=== PATIENT | female | born 1990 | race Caucasian/White ===

== ENCOUNTER 2017-01-20 12:22 | Emergency (ER) | payer MEDICAID ==
[2016-10-05 12:21] VITALS: BMI 29.9
[~2017-01-20 12:22] MED LIST: AUGMENTIN 875-11 TAB PO; COMPAZINE10 MG PO; DOXYCYCLINE HY100 M2 PO; FLAGYL500 MG PO; PHENERGAN25 M1 PO; PROMETHEGA25 MG/SUPP RC; REGLAN10 MG PO; ULTRAM50 MG PO; ZOFRAN4 MG PO
[2017-01-20 13:01] LABS: BASOPHILS 0.1 % (0.0-2.0); EOSINOPHILS 0.2 % (0-7); HEMATOCRIT 33.3 % (36.0-48.0); HEMOGLOBIN 11.9 g/dL (12-16); IMMATURE GRANULOCYTES 0.7 % (0-5); LYMPHOCYTES 12.7 % (15-50); MCH 32.4 pg (26.0-34.0); MCHC 35.7 g/dL (31.0-37.0); MCV 90.7 fL (80.0-100.0); MEAN PLATELET VOLUME 12.3 fL (7.4-10.4); MONOCYTES 3.6 % (2-11); NEUTROPHILS 82.7 % (40-80); PLATELET COUNT 107 10x3/uL (130-400); RBC 3.67 10x6/uL (4.00-5.40); RDW 12.6 % (11.5-14.5); WBC 12.2 10x3/uL (4.8-10.8)
[2017-01-20 13:16] LABS: ALKALINE PHOSPHATASE 60 U/L (46-116); ALT (SGPT) 35 U/L (10-68); AMYLASE - SERUM 74 U/L (25-115); BILIRUBIN - TOTAL 0.42 mg/dL (0.2-1.3); CALC OSMOLALITY 272 mosm/kg (275-300); CALCIUM 8.4 mg/dL (8.5-10.1); CARBON DIOXIDE 22.1 mmol/L (21.0-32.0); CHLORIDE - SERUM 104 mmol/L (98-107); CREATININE - SERUM 0.4 mg/dL (0.6-1.3); GLUCOSE 105 mg/dL (74-106); LIPASE 98 U/L (73-393); PROTEIN - SERUM 6.5 g/dL (6.4-8.2); SODIUM 138 mmol/L (136-145); UREA NITROGEN 4 mg/dL (7-18); eGFR NON AFRICAN AMERICAN > 90 mL/min (90-120)
[2017-01-20 13:17] LABS: POTASSIUM - SERUM 2.9 mmol/L (3.5-5.1)
== END 2017-01-20 13:45 | disposition home or self-care (01) ==
LOC: D.ER 12:22
PROVIDERS: Emergency Medicine
DX: R11.10 Vomiting, unspecified (principal); R10.9 Unspecified abdominal pain; E87.6 Hypokalemia; F17.200 Nicotine dependence, unspecified, uncomplicated

== ENCOUNTER 2017-02-13 18:06 | Emergency (ER) | payer MEDICAID ==
[2016-10-05 12:21] VITALS: BMI 29.9
[2017-02-13 18:58] LABS: BASOPHILS 0 % (0.0-2.0); EOSINOPHILS 0 % (0-7); HEMATOCRIT 33.4 % (36.0-48.0); HEMOGLOBIN 12.1 g/dL (12-16); IMMATURE GRANULOCYTES 0.9 % (0-5); LYMPHOCYTES 11.6 % (15-50); MCH 32.6 pg (26.0-34.0); MCHC 36.2 g/dL (31.0-37.0); MEAN PLATELET VOLUME 12.3 fL (7.4-10.4); MONOCYTES 4.4 % (2-11); NEUTROPHILS 83.1 % (40-80); RBC 3.71 10x6/uL (4.00-5.40); RDW 12.4 % (11.5-14.5); WBC 18.6 10x3/uL (4.8-10.8)
[2017-02-13 19:03] LABS: PLATELET COUNT 162 10x3/uL (130-400)
[2017-02-13 19:26] LABS: APPEARANCE CLOUDY (CLEAR); BILIRUBIN NEGATIVE (NEGATIVE); COLOR DK YELLOW (YELLOW); GLUCOSE NEGATIVE (NEGATIVE); KETONE LARGE mg/dL (NEGATIVE); LEUKOCYTE ESTERASE 1+ (NEGATIVE); NITRITE NEGATIVE (NEGATIVE); PROTEIN 1+ mg/dL (NEGATIVE); UROBILINOGEN NORMAL (NORMAL)
[2017-02-13 19:27] LABS: BACTERIA MANY /hpf (NONE SEEN); RED CELLS - URINE 0-5 /hpf (0-5)
[2017-02-13 19:34] LABS: UDS - AMPHET NEGATIVE QUAL (NEGATIVE); UDS - BARB NEGATIVE QUAL (NEGATIVE); UDS - BENZO NEGATIVE QUAL (NEGATIVE); UDS - COCAINE NEGATIVE QUAL (NEGATIVE); UDS - METH NEGATIVE QUAL (NEGATIVE); UDS - OPIATE NEGATIVE QUAL (NEGATIVE); UDS - PCP NEGATIVE QUAL (NEGATIVE); UDS - THC POSITIVE QUAL (NEGATIVE)
[2017-02-13 19:38] LABS: ALBUMIN 3.1 g/dL (3.4-5.0); ALKALINE PHOSPHATASE 83 U/L (46-116); ALT (SGPT) 23 U/L (10-68); AMYLASE - SERUM 43 U/L (25-115); BILIRUBIN - TOTAL 0.66 mg/dL (0.2-1.3); CALC OSMOLALITY 266 mosm/kg (275-300); CALCIUM 8.7 mg/dL (8.5-10.1); CARBON DIOXIDE 19.4 mmol/L (21.0-32.0); CHLORIDE - SERUM 100 mmol/L (98-107); CREATININE - SERUM 0.4 mg/dL (0.6-1.3); GLUCOSE 97 mg/dL (74-106); LIPASE 84 U/L (73-393); POTASSIUM - SERUM 3.3 mmol/L (3.5-5.1); PROTEIN - SERUM 6.9 g/dL (6.4-8.2); SODIUM 135 mmol/L (136-145); UREA NITROGEN 4 mg/dL (7-18); eGFR NON AFRICAN AMERICAN > 90 mL/min (90-120)
== END 2017-02-13 19:10 | disposition left against medical advice (07) ==
LOC: D.ER 18:06
PROVIDERS: Emergency Medicine
DX: R11.2 Nausea with vomiting, unspecified (principal)

== ENCOUNTER 2017-03-26 20:08 | Outpatient (CLI) | payer MEDICAID ==
[2016-10-05 12:21] VITALS: BMI 29.9
== END 2017-03-26 21:56 | disposition other institution (70) ==
LOC: D.LDO 20:08
DX: O09.893 Supervision of other high risk pregnancies, third trimester (principal); Z3A.36 36 weeks gestation of pregnancy; R10.9 Unspecified abdominal pain

== ENCOUNTER 2017-04-11 12:04 | Emergency (ER) | payer MEDICAID ==
[2016-10-05 12:21] VITALS: BMI 29.9
== END 2017-04-11 13:23 | disposition home or self-care (01) ==
LOC: D.ER 12:04
DX: S31.115D Laceration without foreign body of abdominal wall, periumbilic region without penetration into peritoneal cavity, subsequent encounter (principal); X58.XXXD Exposure to other specified factors, subsequent encounter; Y92.89 Other specified places as the place of occurrence of the external cause

== ENCOUNTER 2017-04-27 20:28 | Emergency (ER) | payer MEDICAID ==
[2016-10-05 12:21] VITALS: BMI 29.9
[2017-04-27 20:54] LABS: APPEARANCE CLOUDY (CLEAR); BILIRUBIN NEGATIVE (NEGATIVE); COLOR YELLOW (YELLOW); GLUCOSE NEGATIVE (NEGATIVE); KETONE NEGATIVE (NEGATIVE); LEUKOCYTE ESTERASE TRACE (NEGATIVE); NITRITE NEGATIVE (NEGATIVE); PROTEIN 1+ mg/dL (NEGATIVE); UROBILINOGEN NORMAL (NORMAL)
[2017-04-27 20:55] LABS: BACTERIA MODERATE /hpf (NONE SEEN); MUCUS <1+ /lpf (NONE SEEN); RED CELLS - URINE 0-5 /hpf (0-5)
== END 2017-04-27 22:37 | disposition left against medical advice (07) ==
LOC: D.ER 20:28
PROVIDERS: Emergency Medicine
DX: R10.9 Unspecified abdominal pain (principal)

== ENCOUNTER 2018-05-22 20:51 | Emergency (ER) | payer MEDICAID ==
[~2018-05-22] VITALS: Ht 165.1 cm; Wt 72.7 kg
[2018-05-22 21:07] VITALS: Ht 165.1 cm; Wt 72.7 kg
[2018-05-22 22:49] LABS: BASOPHILS 0.1 % (0-2); EOSINOPHILS 0.1 % (0-7); HEMATOCRIT 47.2 % (36.0-48.0); HEMOGLOBIN 17.5 g/dL (12-16); IMMATURE GRANULOCYTES 0.4 % (0-5); LYMPHOCYTES 18.4 % (15-50); MCH 32.2 pg (26.0-34.0); MCHC 37.1 g/dL (31.0-37.0); MCV 86.8 fL (80.0-100.0); MEAN PLATELET VOLUME 12.9 fL (7.4-10.4); MONOCYTES 6.1 % (2-11); NEUTROPHILS 74.9 % (40-80); RBC 5.44 10x6/uL (4.00-5.40); RDW 12.3 % (11.5-14.5); WBC 19.2 10x3/uL (4.8-10.8)
[2018-05-22 22:53] LABS: PLATELET COUNT 235 10x3/uL (130-400)
[2018-05-22 22:55] LABS: APPEARANCE CLEAR (CLEAR); BILIRUBIN NEGATIVE (NEGATIVE); COLOR YELLOW (YELLOW); GLUCOSE NEGATIVE (NEGATIVE); KETONE SMALL mg/dL (NEGATIVE); NITRITE NEGATIVE (NEGATIVE); PROTEIN NEGATIVE (NEGATIVE); UROBILINOGEN NORMAL (NORMAL)
[2018-05-22 23:02] LABS: HCG SERUM NEGATIVE (NEGATIVE)
[2018-05-22 23:13] LABS: ALBUMIN 4.8 g/dL (3.4-5.0); ALKALINE PHOSPHATASE 83 U/L (46-116); ALT (SGPT) 41 U/L (10-68); AMYLASE - SERUM 36 U/L (25-115); BILIRUBIN - TOTAL 1.69 mg/dL (0.2-1.3); CALC OSMOLALITY 272 mosm/kg (275-300); CALCIUM 9.3 mg/dL (8.5-10.1); CHLORIDE - SERUM 97 mmol/L (98-107); CREATININE - SERUM 0.8 mg/dL (0.6-1.3); GLUCOSE 95 mg/dL (74-106); LIPASE 90 U/L (73-393); PROTEIN - SERUM 8.7 g/dL (6.4-8.2); SODIUM 137 mmol/L (136-145); UREA NITROGEN 9 mg/dL (7-18); eGFR NON AFRICAN AMERICAN 89 mL/min (90-120)
[2018-05-22 23:15] LABS: POTASSIUM - SERUM 2.9 mmol/L (3.5-5.1)
[2018-05-23 02:30] VITALS: BP 131/79
[2018-05-23] MEDS ORDERED: PHENERGAN25 MG RC (02:38)
== END 2018-05-23 03:28 | disposition home or self-care (01) ==
LOC: D.ER 20:51
PROVIDERS: Family Medicine
DX: K52.9 Noninfective gastroenteritis and colitis, unspecified (principal); E87.6 Hypokalemia; F17.200 Nicotine dependence, unspecified, uncomplicated